=== PATIENT | male | born 1980 | race Asian ===

== ENCOUNTER 2024-10-30 12:33 | Emergency (ER) | payer MEDICAID ==
[~2024-10-30] VITALS: Ht 170.2 cm; Wt 63.6 kg
[2024-10-30 12:36] VITALS: BP 127/80; PULSE 84; RESP 16; TEMP 98; O2SAT 100
[2024-10-30] MEDS: LIDOcaine 1% W/epiNEPHrine 1:100,000 20ml vial SQ ONE (14:38)
[2024-10-30] MEDS ORDERED: CEPH-585 PO (14:52)
[2024-10-30] MEDS ORDERED: SULF1TAB45 PO (14:52)
== END 2024-10-30 15:54 | disposition home or self-care (01) ==
LOC: ER 12:35
DX: L02.31 Cutaneous abscess of buttock (principal); Z79.899 Other long term (current) drug therapy
CPT/HCPCS: 10060; 99283; A6266; J3490; 82948; A6449

== ENCOUNTER 2024-10-30 16:12 | Emergency (ER) | payer MEDICAID ==
[~2024-10-30] VITALS: Ht 170.2 cm; Wt 63.6 kg
[~2024-10-30 16:12] MED LIST: CEPH-585 PO; SULF1TAB45 PO
[2024-10-30] MEDS: normal saline 1000ml 1,000 ML IV ONE (16:30)
[2024-10-30] MEDS: cephalexin 250mg capsule PO ONE (17:00)
[2024-10-30] MEDS: sulfamethoxazole/trimethoprim DS (800/160mg) tablet PO ONE (17:00)
[2024-10-30 17:43] VITALS: BP 98/66; PULSE 84; RESP 16; TEMP 98.6; O2SAT 99
== END 2024-10-30 17:45 | disposition home or self-care (01) ==
LOC: EDUNIT# 16:12 → ER 16:26
DX: R55 Syncope and collapse (principal); Z79.2 Long term (current) use of antibiotics
CPT/HCPCS: 93005; 96360; 99283; J7030